=== PATIENT | male | born 1950 | race Caucasian/White ===

== ENCOUNTER 2017-12-25 10:52 | Day surgery (SDC) | payer MEDICARE ==
[2017-12-19 14:40] VITALS: BMI 31.9
[~2017-12-25 10:52] MED LIST: ALPRAZolam 0.25 MG TAB PO PRN; ALPRAZolam 0.5 MG TAB PO PRN; ASPIRIN 325 MG TAB PO STA; ATORVASTATIN 80 MG TAB PO STA; NITROGLYCERIN SL TABS 0.4 MG TAB SUBLINGUAL PRN; SODIUM CHLORIDE 0.9% 1,000 ML in EMPTY BAG 1 BAG IV ONE
[2017-12-25 11:31] VITALS: PULSE 64; RESP 20; TEMP 98.2
[2017-12-25 11:41] LABS: Glucose,Whole Blood 138 mg/dL (75-99)
[2017-12-25 11:59] LABS: Basophils # (A) 0.1 k/uL (0-0.2); Basophils % (A) 1 %; Eosinophils # (A) 0.3 k/uL (0-0.7); Eosinophils % (A) 5 %; HCT 43.8 % (39.0-53.0); HGB 15.2 gm/dL (13.0-17.5); Lymphocytes # (A) 2.2 k/uL (1.0-4.8); Lymphocytes % (A) 38 %; MCH 31.5 pg (25.0-35.0); MCHC 34.6 g/dL (31.0-37.0); MCV 90.9 fL (80.0-100.0); Mean Platelet Volume 7.4; Monocytes # (A) 0.5 k/uL (0-1.0); Monocytes % (A) 8 %; Neutrophils # (A) 2.6 k/uL (1.3-7.7); Neutrophils % (A) 45 %; Platelet Count 330 k/uL (150-450); RBC 4.82 m/uL (4.30-5.90); WBC 5.7 k/uL (3.8-10.6)
[2017-12-25 12:14] LABS: Anion Gap 12 mmol/L; Blood Urea Nitrogen 21 mg/dL (9-20); Calcium 9.4 mg/dL (8.4-10.2); Carbon Dioxide 24 mmol/L (22-30); Chloride 106 mmol/L (98-107); Glucose 141 mg/dL (74-99); Potassium 4.7 mmol/L (3.5-5.1); Sodium 142 mmol/L (137-145)
[2017-12-25] MEDS ORDERED: MIDAZOLAM 2 MG/2 ML VIAL IVP ONE (12:28)
[2017-12-25] MEDS ORDERED: IV FLUID CONTINUATION 900 ML IV ONE (12:33)
[2017-12-25] MEDS ORDERED: LIDOCAINE 2% INJ 20 MG/ML SQ ONE (12:33)
[2017-12-25] MEDS: VERAPAMIL SYRINGE (5 MG/10 ML) INTRAARTER ONE ×2 (12:34→12:44)
[2017-12-25] MEDS ORDERED: HEPARIN SODIUM 1,000 UN/ML (10ML VL) IV ONE (12:36)
[2017-12-25] MEDS ORDERED: IOPAMIDOL-370 125ML BTL INJ ONE (12:44)
[2017-12-25] MEDS ORDERED: RX INFO: IV CONTRAST WAS GIVEN 1 EACH MISC MISCELLANE PRN (12:50)
[2017-12-25] MEDS ORDERED: SODIUM CHLORIDE 0.9% 1,000 ML IV SCH (13:00)
--- NOTE | 2017-12-25 13:08 | CC ---
CARDIAC CATHETERIZATION REPORT DATE OF SERVICE: December 25, 2017 PERFORMING PHYSICIAN: Darius Dean MD, bacon skinner. PROCEDURE PERFORMED: 1. Selective right and left coronary angiogram. 2. Left heart catheterization. INDICATION: This is a pleasant 67-year-old gentleman with a past medical history significant for diabetes, hypertension, and dyslipidemia, who was experiencing exertional dyspnea and symptoms of chest discomfort. He underwent myocardial perfusion imaging stress test and that revealed transient ischemic dilatation of the left ventricle and I was concerned about severe underlying coronary artery disease. APPROACH: Right radial artery. COMPLICATION: None. LEVEL OF SEDATION: Moderate with sedation length of 15 minutes. PROCEDURE DESCRIPTION: After obtaining an informed consent, the patient was brought to the cardiac laborer/grade check. The right radial artery was cannulated using micropuncture technique, the micropuncture wire passed easily, then I placed a 6-Danish sheath in the right radial artery. After that, I did selective right and left coronary angiogram using JR4 and JL3.5 catheters. I did after that left heart catheterization using 5-Danish pigtail catheter. The procedure was completed without any complication. SELECTIVE CORONARY ANGIOGRAM: 1. RCA is a small to medium caliber vessel and it is a non dominant vessel. The RCA is angiographically normal. 2. The left main is angiographically normal. It bifurcates into left circumflex, ramus intermedius, and left anterior descending artery. 3. The left circumflex is a large caliber vessel and it is a dominant vessel. The left circumflex system is angiographically normal. In the midportion gives rise into a medium-sized OM branch which seems to be angiographically normal and distally bifurcates into PDA and PLV branches, both are angiographically normal. 4. The ramus intermedius is angiographically normal. 5. The LAD is a large caliber vessel. The proximal LAD appeared to be angiographically normal. It gives rise into 2 diagonal branches. It seems to be angiographically normal. The mid and distal LAD are angiographically normal. The LAD itself is a medium caliber vessel in the midportion. HEMODYNAMICS: The left ventricular end-diastolic pressure was 8 mmHg and no gradient was identified across the aortic valve. CONCLUSION: 1. Normal coronary angiogram. 2. Normal left ventricular end-diastolic pressure. POSTPROCEDURE MANAGEMENT: 1. Medical treatment. 2. Follow up with the patient. MMODL / IJN: [id number] /
--- NOTE | 2017-12-25 13:14 | LTR ---
December 25, [address] Camejo: Mr. Paresh Acuna underwent heart catheterization and that revealed normal coronaries. I want to thank you for allowing me to participate in his care and please do not hesitate to call if you have any question or concerns. MMARELIL / IJN: [id number] /
[2017-12-25 18:09] VITALS: BP 142/77
== END 2017-12-25 18:00 | disposition home or self-care (01) ==
LOC: CATHCVL 10:52
PROVIDERS: ATTEND Internal Medicine Interventional Cardiology
DX: I20.0 Unstable angina (principal); I10 Essential (primary) hypertension; R94.39 Abnormal result of other cardiovascular function study; E78.5 Hyperlipidemia, unspecified; E78.00 Pure hypercholesterolemia, unspecified; E11.9 Type 2 diabetes mellitus without complications; Z79.84 Long term (current) use of oral hypoglycemic drugs; Z82.49 Family history of ischemic heart disease and other diseases of the circulatory system; Z79.82 Long term (current) use of aspirin; Z79.899 Other long term (current) drug therapy
CPT/HCPCS: 93458; 80048; 85025; C1894; C1769; J2001; J2250; J1644; Q9967

== ENCOUNTER → 2019-05-06 | Outpatient (CLI) | payer MEDICARE ==
--- NOTE | 2019-05-06 09:52 | MR ---
EXAMINATION TYPE: MR lumbar spine wo con DATE OF EXAM: 05/06/2019 COMPARISON: NONE HISTORY: Lumbago with right sided sciatica, pain into right lower extremity TECHNIQUE: Multiplanar, multisequence imaging of the lumbar spine is performed without IV contrast. FINDINGS: Sagittal images of the lumbar spine show vertebral body heights and alignment to appear sat isfactory. Multilevel disc desiccation is present. There is moderate to advanced disc space narrowing L4-L5 level. There is Modic type II endplate changes L4-L5 level with moderate anterior spurring The conus medullaris is normal in position and signal ending inferior L1 level. Axial images show the T12-L1 and L1-L2 levels to appear within normal limits. Axial images at the L2-L3 level show mild broad disc bulge minimally effaces the anterior thecal sac, bilateral neural foramina are patent. Axial images at the L3-L4 level show [id number] broad disc bulge minimally effacing anterior th ecal sac and causing mild left greater than right anterior inferior neural foraminal narrowing. Mild facet degenerative changes and ligamentum flavum hypertrophy are present bilaterally. Axial images at the L4-L5 level show moderate facet degenerative changes bilaterally. There is modera te broad disc bulge with some posterior spurring. There is effacement of the anterior thecal sac. The re is moderate left and mild right-sided inferior neural foraminal narrowing. Axial images at the L5-S1 level show mild/moderate facet degenerative changes bilaterally. There is m oderate broad disc bulge. There is right lateral disc protrusion component causing severe right-sided neural foraminal narrowing and encroachment on right L5 nerve seen best sagittal image 13 and axial image 3. No suspicious incidental retroperitoneal findings. IMPRESSION: Multilevel degenerative changes in the lumbar spine as detailed above. Attention to L5-S1 level where eccentric disc herniation encroaches on exiting right L5 nerve likely accounting for pat alexandrnt's clinical symptoms.
== END | disposition home or self-care (01) ==
LOC: RADMRIMAIN 08:00
PROVIDERS: ATTEND Family Medicine
DX: M47.816 Spondylosis without myelopathy or radiculopathy, lumbar region (principal)
CPT/HCPCS: 72148

== ENCOUNTER → 2020-10-27 | Outpatient (CLI) | payer MEDICARE ==
--- NOTE | 2020-10-27 07:41 | MR ---
EXAMINATION TYPE: MR shoulder RT wo con DATE OF EXAM: 10/27/2020 COMPARISON: None HISTORY: R shoulder pain due to fall Technique: Multiplanar, multiecho imaging on a 3.0 Gini magnet is performed through the shoulder. Findings: Long head of the biceps tendon is within the bicipital groove. There is fluid surrounding t he long head of the biceps tendon. Small joint effusion. Glenoid labrum as visualized on this noncontrast study appears intact. Rotator cuff tendons are evaluated. There is complete tear of the supraspinatus tendon with separati on of at least 0.9 cm just distal to the acromion. No muscle atrophy is evident. No fatty infiltrati on is evident. Small amount fluid is adjacent to the infraspinatus tendon. Small subchondral cyst bryan r the insertion of the supraspinatus tendon. The acromioclavicular junction is mildly hypertrophied which can contribute to impingement syndrome. IMPRESSIONS: 1. Tear of the supraspinatus tendon with approximately 0.9 cm retraction with the proximal tip just u nder the distal acromion.
== END | disposition home or self-care (01) ==
LOC: RADMRIMAIN 06:09
PROVIDERS: ATTEND Family Medicine
DX: S46.011A Strain of muscle(s) and tendon(s) of the rotator cuff of right shoulder, initial encounter (principal)

== ENCOUNTER → 2022-01-16 | Outpatient (CLI) | payer MEDICARE ==
--- NOTE | 2022-01-16 09:57 | MR ---
EXAMINATION TYPE: MR angio neck wo/w con DATE OF EXAM: 01/16/2022 COMPARISON: None HISTORY: Lightheaded, shortness of breath. CONTRAST: Standard multiplanar, multisequence MRI departmental protocol images were obtained without contrast a nd with 9 mL intravenous Gadavist gadolinium contrast. FINDINGS: Images are limited by motion artifact. Left vertebral artery is dominant. Visualized portions of the vertebral basilar system are patent. The carotid bifurcations are widely patent with no significant stenosis. Assessment aortic arch and o rigins of the great vessels including the proximal and mid common carotid arteries are nondiagnostic due to extreme artifact. The visualized ICA appears to be patent bilaterally to the level of the cavernous sinus. IMPRESSION: Limited exam due to motion demonstrates no evidence of significant hemodynamic stenosis of the bifurc ations.
== END | disposition home or self-care (01) ==
LOC: RADMRIMAIN 08:46
PROVIDERS: ATTEND Family Medicine
DX: I65.23 Occlusion and stenosis of bilateral carotid arteries (principal); R06.02 Shortness of breath
CPT/HCPCS: 70549; A9585

== ENCOUNTER 2022-11-24 05:58 | Day surgery (SDC) | payer MEDICARE ==
[2022-11-24] MEDS ORDERED: SODIUM CHLORIDE 0.9% 1,000 ML in EMPTY BAG 1 BAG IV SCH (06:07)
[2022-11-24] MEDS ORDERED: ALPRAZolam 0.5 MG TAB PO PRN (06:07)
[2022-11-24] MEDS ORDERED: NITROGLYCERIN SL TABS 0.4 MG TAB SUBLINGUAL PRN (06:07)
[2022-11-24] MEDS ORDERED: HEPARIN SODIUM,PORCINE 10,000 UNIT in SODIUM CHLORIDE 0.9% 1,000 ML IRRIGATION PRN (06:07)
[2022-11-24] MEDS ORDERED: ATORVASTATIN 80 MG TAB PO STA (06:07)
[2022-11-24] MEDS ORDERED: ALPRAZolam 0.25 MG TAB PO PRN (06:07)
[2022-11-24] MEDS ORDERED: ASPIRIN 325 MG TAB PO STA (06:07)
[2022-11-24] MEDS ORDERED: HEPARIN SODIUM,PORCINE 2,500 UNIT in SODIUM CHLORIDE 0.9% 250 ML IRRIGATION PRN (06:07)
[2022-11-24 06:28] VITALS: RESP 18; TEMP 98.3
[2022-11-24 06:33] LABS: Glucose,Whole Blood 142 mg/dL (70-110)
[2022-11-24 06:34] LABS: Basophils # (A) 0.1 k/uL (0-0.2); Basophils % (A) 1 %; Eosinophils # (A) 0.1 k/uL (0-0.7); Eosinophils % (A) 2 %; HCT 49.3 % (39.0-53.0); HGB 16.8 gm/dL (13.0-17.5); Lymphocytes # (A) 2.2 k/uL (1.0-4.8); Lymphocytes % (A) 35 %; MCH 31.9 pg (25.0-35.0); Monocytes # (A) 0.4 k/uL (0-1.0); Monocytes % (A) 6 %; Neutrophils # (A) 3.3 k/uL (1.3-7.7); Neutrophils % (A) 52 %; Platelet Count 325 k/uL (150-450); RBC 5.25 m/uL (4.30-5.90); RDW 13.2 % (11.5-15.5); WBC 6.3 k/uL (3.8-10.6)
[2022-11-24 06:46] LABS: African American GFR (CKD) >90 (>60 ml/min/1.73 sqM); Anion Gap 7 mmol/L; Blood Urea Nitrogen 23 mg/dL (9-20); Calcium 9.5 mg/dL (8.4-10.2); Carbon Dioxide 24 mmol/L (22-30); Chloride 108 mmol/L (98-107); Glucose 149 mg/dL (74-99); Non-African American GFR(CKD) 89 (>60 ml/min/1.73 sqM); Potassium 4.5 mmol/L (3.5-5.1); Sodium 139 mmol/L (137-145)
[2022-11-24] MEDS ORDERED: HEPARIN SODIUM 1,000 UN/ML (10ML VL) ONE (08:37)
[2022-11-24] MEDS ORDERED: MIDAZOLAM 2 MG/2 ML VIAL IV ONE (08:54)
[2022-11-24] MEDS ORDERED: LIDOCAINE 1% INJ 10MG/ML (20 ML MDV) SQ ONE (08:56)
[2022-11-24] MEDS ORDERED: VERAPAMIL SYRINGE (5 MG/10 ML) INTRAARTER ONE (08:57)
[2022-11-24] MEDS ORDERED: HEPARIN SODIUM 1,000 UN/ML (10ML VL) IV ONE (09:00)
[2022-11-24] MEDS ORDERED: IOPAMIDOL-370 125ML BTL INJ ONE (09:07)
[2022-11-24] MEDS ORDERED: RX INFO: IV CONTRAST WAS GIVEN 1 EACH MISC MISCELLANE PRN (09:13)
[2022-11-24] MEDS ORDERED: SODIUM CHLORIDE 0.9% 1,000 ML IV SCH (09:15)
--- NOTE | 2022-11-24 09:17 | P.PCN ---
Date of Procedure: 11/24/22 Operative Findings: CARDIAC CATHETERIZATION PERFORMING PHYSICIAN: Darius Dean MD, RPVI PROCEDURE PERFORMED: 1. Selective right and left coronary angiogram 2. Left heart catheterization INDICATION: Chest discomfort in this 72-year-old gentleman who is known to have diabetes and hypertension and dyslipidemia and he underwent stress test showed ischemia. COMPLICATION: None APPROACH: Right radial artery LEVEL OF SEDATION: Moderate with a sedation length of 12 minutes PROCEDURE DESCRIPTION: After obtaining an informed consent, the patient was brought to cardiac brush clearing laborer. Local anesthesia was performed using lidocaine subcutaneously. The right radial artery was cannulated using Seldinger technique, the guidewire passed easily, following that we advanced a 5-Burmese sheath dilator assembly, the wire and dilator were removed and sheath was flushed. Following that, 2 mg of verapamil along with 5000 unit heparin were given. Selective right and left coronary angiogram using a 6-Burmese JR4 and JL 3.5 catheters. Following that we did left heart catheterization using 6-Burmese pigtail catheter. The procedure was completed there was no complication. SELECTIVE CORONARY ANGIOGRAM: The right coronary artery: Moderate caliber vessel nondominant vessel appeared to be angiographically normal Left main: Is angiographically normal. Bifurcates into LCx and LAD The left circumflex: Large caliber vessel and a dominant vessel. The LCx system is angiographically normal. Gives rises into the first and second OM's and they appeared to be normal. Distally bifurcates into PDA and PLV branches and both appeared to be angiographically normal The left anterior descending artery: Is angiographically normal. Gives rises into the first diagonal branch which seems to be normal and second diagonal branch which has a lesion appeared to be in the range of 60% and the artery is 2 mm vessel. HEMODYNAMICS: The LVEDP was 11 mmHg was no gradient was identified across aortic valve CONCLUSION: 1. Intermediate disease involving the second diagonal branch of the LAD and the vessel is 2 mm in diameter 2. Normal left-sided filling pressure POSTPROCEDURE MANAGEMENT: Medical treatment at this point. Consider FFR of the diagonal if the patient remains symptomatic
[2022-11-24] MEDS ORDERED: SODIUM CHLORIDE 0.9% 500 ML 500 ML IV ONE (11:00)
[2022-11-24 11:43] VITALS: PULSE 70
[2022-11-24 12:58] VITALS: BP 135/84
== END 2022-11-24 13:35 | disposition home or self-care (01) ==
LOC: CATHCVL 05:58
PROVIDERS: ATTEND Internal Medicine Interventional Cardiology
DX: I25.10 Atherosclerotic heart disease of native coronary artery without angina pectoris (principal); E11.9 Type 2 diabetes mellitus without complications; E78.5 Hyperlipidemia, unspecified; I10 Essential (primary) hypertension
CPT/HCPCS: 93458; 80048; 85025; C1769; C1894; J2250; J2001; J1644; Q9967

== ENCOUNTER → 2023-10-26 | Outpatient (CLI) | payer MEDICARE ==
--- NOTE | 2023-10-26 11:04 | XR ---
EXAMINATION TYPE: XR Hip Bilateral Complete DATE OF EXAM: 10/26/2023 COMPARISON: NONE HISTORY: Pain TECHNIQUE: 2 views submitted FINDINGS: There is no evidence of erosive change or acute fracture. A mild concentric narrowing of the hip join t bilaterally. Mild generalized demineralization. Vascular calcifications. Mild hypertrophic SI joint arthropathy bilaterally. IMPRESSION: 1. Mild bilateral hip arthropathy. Femoral acetabular impingement in the differential diagnosis.
== END | disposition home or self-care (01) ==
LOC: RADXRMAIN 10:28
PROVIDERS: ATTEND Internal Medicine
DX: M12.852 Other specific arthropathies, not elsewhere classified, left hip (principal); M12.851 Other specific arthropathies, not elsewhere classified, right hip
CPT/HCPCS: 73521

== ENCOUNTER 2024-05-28 07:14 | Day surgery (SDC) | payer MEDICARE ==
[~2024-05-28 07:14] MED LIST changes: +ASPIRIN 325 MG TAB PO ONE; -ASPIRIN 325 MG TAB PO STA; -ATORVASTATIN 80 MG TAB PO STA; +HEPARIN SODIUM,PORCINE (1 ML) 2,500 UNIT in SODIUM CHLORIDE 0.9% 250 ML IRRIGATION PRN; +HEPARIN SODIUM,PORCINE 10,000 UNIT in SODIUM CHLORIDE 0.9% 1,000 ML IRRIGATION PRN; -SODIUM CHLORIDE 0.9% 1,000 ML in EMPTY BAG 1 BAG IV ONE
[2024-05-28 07:39] LABS: Glucose,Whole Blood 127 mg/dL (70-110)
[2024-05-28 07:40] VITALS: TEMP 96.7
[2024-05-28] MEDS: SODIUM CHLORIDE 0.9% 1,000 ML in EMPTY BAG 1 BAG IV SCH (07:41)
[2024-05-28] MEDS: IV FLUID CONTINUATION 1,000 ML IV ONE (07:41)
[2024-05-28] MEDS: MIDAZOLAM 2 MG/2 ML VIAL IVP ONE (09:31)
[2024-05-28] MEDS: LIDOCAINE 1% INJ 10MG/ML (20 ML MDV) SQ ONE (09:32)
[2024-05-28] MEDS: VERAPAMIL SYRINGE (5 MG/10 ML) INTRAARTER ONE (09:33)
[2024-05-28] MEDS: HEPARIN SODIUM 1,000 UN/ML (10ML VL) IVP ONE (09:35)
[2024-05-28] MEDS: IOPAMIDOL-370 100ML BTL INJ ONE (09:43)
[2024-05-28] MEDS ORDERED: RX INFO: IV CONTRAST WAS GIVEN 1 EACH MISC MISCELLANE PRN (09:46)
--- NOTE | 2024-05-28 09:50 | P.PCN ---
Date of Procedure: 05/28/24 Operative Findings: CARDIAC CATHETERIZATION PERFORMING PHYSICIAN: Darius Dean MD, RPVI PROCEDURE PERFORMED: 1. Selective right and left coronary angiogram 2. Ultrasound-guided access of the right radial artery INDICATION: Symptomatic 71-year-old gentleman with abnormal myocardial perfusion imaging s tress test COMPLICATION: None APPROACH: Right radial artery LEVEL OF SEDATION: Moderate with a sedation length of 12 minutes PROCEDURE DESCRIPTION: After obtaining an informed consent, the patient was brought to cardiac labor law professor. Local anesthesia was performed using lidocaine subcutaneously. The right radial artery was cannulated using Seldinger technique, the guidewire passed easily, following that we advanced a 5-Yoruba sheath dilator assembly, the wire and dilator were removed and sheath was flushed. Following that, 2 mg of verapamil along with 5000 unit heparin were given. Selective right and left coronary angiogram using a 6-Yoruba JR4 and JL 3.5 catheters. The procedure was completed there was no complication. SELECTIVE CORONARY ANGIOGRAM: The right coronary artery: Medium caliber vessel nondominant vessel appears to be angiographically normal Left main: Mildly calcified but appears to be angiographically normal The left circumflex: Large caliber vessel and a dominant vessel appears to be angiographically normal with no high-grade stenosis was identified The left anterior descending artery: The mid LAD has lesion appears to be in the range of 40 to 50%. No high-grade stenosis was identified as well CONCLUSION: 1. Intermediate disease involving the mid LAD POSTPROCEDURE MANAGEMENT: Medical treatment
[2024-05-28] MEDS ORDERED: SODIUM CHLORIDE 0.9% 1,000 ML IV SCH (10:00)
[2024-05-28 17:53] VITALS: RESP 16
[2024-05-28 18:00] VITALS: BP 131/67; PULSE 79
== END 2024-05-28 13:59 | disposition home or self-care (01) ==
LOC: CATHCVL 07:14
PROVIDERS: ATTEND Internal Medicine Interventional Cardiology
DX: R07.9 Chest pain, unspecified
CPT/HCPCS: 93454

== ENCOUNTER → 2025-02-18 | Outpatient (CLI) | payer MEDICARE ==
[2025-02-18 10:39] LABS: BUN/Creat Ratio 22.33 Ratio (12.00-20.00); Blood Urea Nitrogen 20.1 mg/dL (9.0-27.0); Calcium 9.5 mg/dL (8.7-10.3); Chloride 106 mmol/L (96-109); Glucose 145 mg/dL (70-110); HCT 45.7 % (39.6-50.0); HGB 15.1 g/dL (13.0-17.0); MCH 31.5 pg (27.0-32.0); MCV 95.2 FL (80.0-97.0); NRBC Per 100 WBC 0 X 10*3/uL (0.00-0.01); Platelet Count 356 X 10*3/uL (140-440); RDW 13.3 % (11.5-14.5); Sodium 144 mmol/L (135-145); WBC 5.48 X 10*3/uL (4.50-10.00)
[2025-02-18 10:40] LABS: Basophils # (A) 0.05 X 10*3/uL (0.00-0.10); Basophils % (A) 0.9 %; Eosinophils # (A) 0.14 X 10*3/uL (0.04-0.35); Eosinophils % (A) 2.6 %; Lymphocytes # (A) 1.78 X 10*3/uL (0.90-5.00); Lymphocytes % (A) 32.5 %; Monocytes # (A) 0.62 X 10*3/uL (0.20-1.00); Monocytes % (A) 11.3 %; Neutrophils # (A) 2.88 X 10*3/uL (1.80-7.70); Neutrophils % (A) 52.5 %
[2025-02-18 22:29] LABS: Appearance,Urine Clear (Clear); Bilirubin,Urine Negative (Negative); Blood,Urine Negative (Negative); Color,Urine Yellow (Yellow); Ketones,Urine 40 (Negative); Nitrite,Urine Negative (Negative); Specific Gravity,Urine >1.035 (1.001-1.030); Urobilinogen,Urine 0.2
== END | disposition home or self-care (01) ==
LOC: LABPAT 07:57
PROVIDERS: ATTEND Urology
DX: Z01.812 Encounter for preprocedural laboratory examination (principal); C61 Malignant neoplasm of prostate
CPT/HCPCS: 36415; 80048; 81003; 85025; 86850; 86900; 86901; 87086

== ENCOUNTER 2025-02-27 10:24 | Day surgery (SDC) | payer MEDICARE ==
--- NOTE | 2025-02-24 09:31 | P.HPIHPCON ---
History of Present Illness H&P Date: 02/24/25 Chief Complaint: Prostate cancer This is a 74-year-old male with history of Lodi 7(3+4) prostate cancer. He was initially diagnosed with Lodi 6 prostate cancer back in October 2022, on repeat biopsy had evidence of disease progression. At this point I discussed with him I do recommend proceeding with definitive treatment. Option of robotic radical prostatectomy versus radiation therapy was discussed with him in detail. Risk and benefit of each approach were discussed. He agreed to proceed with a robotic radical prostatectomy. He is aware of the risk which include but not limited to bleeding, infection, urinary incontinence, erectile dysfunction. Risk of injury to nearby organs was discussed. Discussed also the risk of cancer recurrence and the potential need for additional treatments, and the need for postoperative surveillance. He understood all risk and agreed to proceed Consent for Procedure: I have explained the operation/procedure to the patient, including the risks, benefits, side effects, alternative therapies (including not receiving the proposed treatment or service), the likelihood of the patient achieving his/her goals, and potential recuperation problems for the procedure/sedation/analgesia, as well as any blood products, if indicated. I also explained to the patient the risks, benefits and side effects of the alternatives, as well as the risks related to not receiving the proposed procedure, care, treatment, or services. Past Medical History Past Medical History: Cancer, Diabetes Mellitus, Hyperlipidemia, Hypertension, Prostate Disorder Additional Past Medical History / Comment(s): prostate cancer dx. 2 yrs. ago, Type II DM History of Any Multi-Drug Resistant Organisms: None Reported Past Surgical History: Heart Catheterization, Hernia Repair, Orthopedic Surgery, Tonsillectomy Additional Past Surgical History / Comment(s): Rt. inguinal hernia, Rt. wrist surgery, Rt. rotator cuff repair Past Anesthesia/Blood Transfusion Reactions: No Reported Reaction Smoking Status: Never smoker - Past Family History Father Family Medical History: Cancer Additional Family Medical History / Comment(s): lung Mother Family Medical History: Congestive Heart Failure (CHF) Medications and Allergies Home Medications Medication Instructions Recorded Confirmed Type Benazepril [Lotensin] 10 mg PO DAILY 12/19/17 02/24/25 History Cholecalciferol [Vitamin D3 (25 3,000 unit PO DAILY 12/19/17 02/24/25 History Mcg = 1000 Iu)] Glimepiride [Amaryl] 1 mg PO HS 12/19/17 02/24/25 History amLODIPine [Norvasc] 10 mg PO QAM 12/19/17 02/24/25 History Dapagliflozin Propanediol [Farxiga] 10 mg PO DAILY 11/22/22 02/24/25 History Ibuprofen/Pseudoephedrine HCl 1 each PO DIRECTED PRN 11/22/22 02/24/25 History [Advil Cold & Sinus Caplet] Montelukast [Singulair] 10 mg PO HS 11/22/22 02/24/25 History Tamsulosin [Flomax] 0.4 mg PO DAILY 11/22/22 02/24/25 History Semaglutide [Ozempic] 1 mg SQ MO 05/23/24 02/24/25 History Acetaminophen Tab [Tylenol Tab] 500 mg PO Q6H PRN 02/24/25 02/24/25 History Ezetimibe [Zetia] 10 mg PO HS 02/24/25 02/24/25 History Rosuvastatin [Crestor] 20 mg PO DAILY 02/24/25 02/24/25 History metFORMIN HCL ER [Glucophage XR] 500 mg PO HS 02/24/25 02/24/25 History Allergies Allergy/AdvReac Type Severity Reaction Status Date / Time No Known Allergies Allergy Verified 02/24/25 08:38 Surgical - Exam - General no distress, no pain - Eyes normal ocular movement, no pale - ENT normal nares, normal mucosa - Respiratory normal expansion, normal respiratory effort - Abdomen Abdomen: soft, non tender, no distended - Psychiatric oriented to time, oriented to person, oriented to place Assessment and Plan Assessment: OR for robotic radical prostatectomy with bilateral pelvic lymph node dissection
[2025-02-27] MEDS: LACTATED RINGERS 1,000 ML IV SCH (10:50)
[2025-02-27] MEDS: IV FLUID CONTINUATION 1,000 ML IV ONE ×2 (10:50→11:00)
[2025-02-27 11:07] LABS: Glucose,Whole Blood 140 mg/dL (70-110)
[2025-02-27] MEDS: DEXAMETHASONE SOD PHOSPHATE 4 MG/ML 1 ML VIAL IV ONE (11:08)
[2025-02-27] MEDS: ONDANSETRON 4 MG/2 ML VIAL IVP ONE (11:08)
[2025-02-27] MEDS: MIDAZOLAM 2 MG/2 ML VIAL IV ONE (11:14)
[2025-02-27] MEDS: HEPARIN SODIUM,PORCINE 5,000 UNIT/ML 1 ML VIAL SQ PRN (11:20)
[2025-02-27] MEDS ORDERED: MIDAZOLAM 2 MG/2 ML VIAL ONE (12:29)
[2025-02-27] MEDS ORDERED: ONDANSETRON 4 MG/2 ML VIAL IVP PRN (12:29)
[2025-02-27] MEDS ORDERED: ROPIVACAINE 5 MG/ML 30 ML VIAL ONE (12:29)
[2025-02-27] MEDS ORDERED: GLYCOPYRROLATE 0.2 MG/ML 2 ML VIAL ONE (12:29)
[2025-02-27] MEDS ORDERED: fentaNYL (PF) 50 MCG/ML 2 ML AMP ONE (12:29)
[2025-02-27] MEDS ORDERED: ePHEDrine 50 MG/ML 1 ML VIAL ONE (12:29)
[2025-02-27] MEDS ORDERED: LIDOCAINE 1% INJ 10MG/ML (20 ML MDV) ONE (12:29)
[2025-02-27] MEDS ORDERED: HYDROmorphone (PF) 1 MG/ML ONE (12:29)
[2025-02-27] MEDS ORDERED: HYDROmorphone 1 MG/ML 1 ML SYRINGE IVP PRN (12:29)
[2025-02-27] MEDS ORDERED: DEXAMETHASONE SOD PHOSPHATE 4 MG/ML 1 ML VIAL ONE (12:29)
[2025-02-27] MEDS ORDERED: PROPOFOL 10 MG/ML 20 ML VIAL IV ONE (12:29)
[2025-02-27] MEDS ORDERED: ESMOLOL 100 MG/10 ML VIAL ONE (12:29)
[2025-02-27] MEDS ORDERED: SODIUM CHLORIDE 0.9% (PF) 10 ML VIAL ONE (12:29)
[2025-02-27] MEDS ORDERED: NEOSTIGMINE 1 MG/ML 10 ML VIAL ONE (12:29)
[2025-02-27] MEDS ORDERED: SUCCINYLCHOLINE CHLORIDE 200 MG/10 ML VIAL IV ONE (12:29)
[2025-02-27] MEDS ORDERED: ROCURONIUM 10 MG/ML (5 ML VIAL) IV ONE (12:29)
[2025-02-27] MEDS ORDERED: HYDROcodone/APAP 5-325MG 1 EACH TAB PO PRN (12:32)
[2025-02-27] MEDS: BUPIVACAINE (PF) 0.25% 30 ML VIAL SQ ONE ×2 (13:20→16:11)
--- NOTE | 2025-02-27 13:46 | P.ANPRN ---
Procedure Note - Anesthesia - Nerve Block Performed Bilateral Erector Spinae Single Time Out Performed: Yes Date of Procedure: 02/27/25 Procedure Start Time: 11:14 Procedure Stop Time: 11:18 Location of Patient: PreOp Indication: Acute Post-Operative Pain, Requested by Surgeon Sedation Type: Sedate with meaningful contact maintained Preparation: Sterile Prep Position: Prone Needle Types: Pajunk Needle Gauge: 21 Ultrasound used to visualize needle placement: Yes Ultrasound used to observe medication spread: Yes Blood Aspirated: No Pain Paresthesia on Injection Noted: No Resistance on Injection: Normal Image Stored and Saved: Yes Events: Uneventful and Well Tolerated (Ropivacaine 0.5% 15 cc plus normal saline 10 cc plus dexamethasone 4 mg given bilaterally at L1)
[2025-02-27] MEDS: LACTATED RINGERS 1,000 ML IV ONE (15:11)
--- NOTE | 2025-02-27 16:12 | P.OP ---
Date of Procedure: 02/27/25 Preoperative Diagnosis: Prostate cancer Postoperative Diagnosis: Same Procedure(s) Performed: Robotic radical prostatectomy with bilateral pelvic lymph node dissection Implants: None Anesthesia: BERNADETTEA Surgeon: Dave Bruce Estimated Blood Loss (ml): 50 Pathology: other (Prostate, bilateral seminal vesicle, bilateral pelvic nodes) Condition: stable Disposition: PACU Indications for Procedure: This is a 74-year-old male with history of Rashmi 7(3+4) prostate cancer. He was initially diagnosed with Rashmi 6 prostate cancer back in October 2022, on repeat biopsy had evidence of disease progression. At this point I discussed with him I do recommend proceeding with definitive treatment. Option of robotic radical prostatectomy versus radiation therapy was discussed with him in detail. Risk and benefit of each approach were discussed. He agreed to proceed with a robotic radical prostatectomy. He is aware of the risk which include but not limited to bleeding, infection, urinary incontinence, erectile dysfunction. Risk of injury to nearby organs was discussed. Discussed also the risk of cancer recurrence and the potential need for additional treatments, and the need for postoperative surveillance. He understood all risk and agreed to proceed Description of Procedure: After preoperative antibiotics were started, the patient was taken to the operating room. Anesthesia was induced and the patient was placed in a supine position, with adequate padding of the pressure points, shoulders, back, legs and arms. He was then prepped and draped in the standard fashion. A critical pause was performed using two patient identifiers. A 16F harrison catheter was placed to gravity drainage. A pneumo-peritoneum was created with placement of a Veress needle to 20 mm Hg without complication, and a 8 Fr trocar was placed above the umbillicus. Under direct vision a 8mm robotic ports was placed lateral to each rectus slightly below the camera port. The left iliac fossa 8mm port was placed. The right legal support assistant right iliac fossa 12mm port and right paramedian 5mm portwere placed. After the patient was placed in the trendelenberg position, the robot was then docked to the 8mm robotic ports and then each robotic arm and tower was checked in relation to the patient's legs and hands to avoid inadvertent compression. The peritoneal cavity was inspected. An inverted U-shaped incision began laterally to the left medial umbilical ligament and extended high across the midline to the right umbilical ligament. The limbs of the "U" extended to the level of the vasa on both sides. We next developed the preperitoneal space and the space of Retzius. Cautery was used to dissected the bladder away from the prostate. After the anterior bladder neck was incised and the bladder entered the the posterior bladder neck was exposed and the ureteral orifces identified. The posterior bladder neck was then incised and dissected away from the prostate. The vas and the seminal vesicles were now exposed and dissected to their insertions into the prostate and were not spared. The posterior layer of the Denonvillier's fascia was incised to enter nicole the plane between prostate and perirectal fat. Each lateral pedicle was controlled with vessel sealer. Complete nerve preservation was performed on the right, partial nerve preservation was performed on the left. The puboprostatic ligament was incised where it inserted into the apex of the prostate and a plane between urethra and dorsal venous complex developed to expose the anterior urethral surface. The anterior wall of the urethra was transected with the cut setting a few millimeters distal to the apex of the prostate. The dorsal vein was ligated using 3-0 V lock bilateral obturator and external iliac lymph node packets were carefully dissected after careful visualization of the hypogastric artery and obturator nerve. There was careful attention paid to hemostasis with judicious use of cautery. The urethrovesical anastomosis was performed . the posterior denovillers was reapproximated using 3-0 V lock. A 6 and 6 inch 3-0 V-Lock suture was used to anastomose the urethra and bladder, starting at the 6:00 posterior position. Mucosa was secured in every stitch, to ensure a mucosa to mucosa anastomosis. The stitch was regularly cinched and the anastomosis tightened. Care was taken to not violate the ureteral orifices. The Harrison catheter was advanced, the bladder filled, and the anastomosis was tested, as described above. Anastomsis was watertight at 150 mL The periumbilical fascia was closed with 1-0-PDS suture in figure of eight fashion. All ports were closed with a subcuticular 4-0 monocryl and Dermabond. Sponge, instrument, and needle counts were correct at the end of the case x2. All specimens including prostate and lymph nodes were sent to pathology for diagnosis and will be available in a week. The patient tolerated the surgery well and without complication. He awoke without difficulty and was taken to the recovery room in stable condition
[2025-02-27] MEDS: HYDROmorphone 0.5 MG/0.5 ML SYRINGE IVP PRN (17:10)
[2025-02-27] MEDS: KETOROLAC 15 MG/ML 1 ML VIAL IVP SCH (17:54)
[2025-02-27] MEDS: SODIUM CHLORIDE 0.9% 1,000 ML IV SCH (19:06)
[2025-02-27] MEDS: HEPARIN SODIUM,PORCINE 5,000 UNIT/ML 1 ML VIAL SQ SCH (19:07)
[2025-02-27] MEDS: metFORMIN 500 MG TAB PO SCH (19:07)
[2025-02-27 21:06] LABS: Glucose,Whole Blood 219 mg/dL (70-110)
[2025-02-27] MEDS: MONTELUKAST 10 MG TAB PO SCH (21:13)
[2025-02-27] MEDS: EZETIMIBE 10 MG TAB PO SCH (21:13)
[2025-02-27] MEDS: GLIMEPIRIDE 1 MG TAB PO SCH (21:13)
[2025-02-28 04:27] VITALS: RESP 20
[2025-02-28 08:01] VITALS: BP 120/67; PULSE 74; TEMP 98.6
[2025-02-28] MEDS: DAPAGLIFLOZIN PROPANEDIOL 10 MG TABLET PO SCH (08:30)
[2025-02-28] MEDS: ATORVASTATIN 40 MG TAB PO SCH (08:30)
[2025-02-28] MEDS: amLODIPine 10 MG TAB PO SCH (08:30)
[2025-02-28] MEDS: ACETAMINOPHEN TAB 500 MG TAB PO PRN (08:31)
[2025-02-28 11:30] LABS: Glucose,Whole Blood 243 mg/dL (70-110)
--- NOTE | 2025-02-28 13:01 | P.DS ---
Providers Attending physician: Dave Bruce MD Primary care physician: Alverto Norris [facility] Course: 74 yo male underwent a ralp by Dr Bruce yesterday without incident. He had an uneventful night. His VSS. His uo is good and clear He is having minimal discomfort. He tolerated oral intake He will be d/cd home and fu with Dr bruce in the office. Patient Condition at Discharge: Good Plan - Discharge Summary Discharge Rx Participant: No New Discharge Prescriptions: No Action amLODIPine [Norvasc] 10 mg PO QAM Glimepiride [Amaryl] 1 mg PO HS Cholecalciferol [Vitamin D3 (25 Mcg = 1000 Iu)] 3,000 unit PO DAILY Montelukast [Singulair] 10 mg PO HS Semaglutide [Ozempic] 1 mg SQ MO Acetaminophen Tab [Tylenol Tab] 500 mg PO Q6H PRN PRN Reason: Pain metFORMIN HCL ER [Glucophage XR] 500 mg PO HS Rosuvastatin [Crestor] 20 mg PO DAILY Ezetimibe [Zetia] 10 mg PO HS Ibuprofen/Pseudoephedrine HCl [Advil Cold & Sinus Caplet] 1 each PO DIRECTED PRN PRN Reason: Sinus Symptoms Dapagliflozin Propanediol [Farxiga] 10 mg PO DAILY Tamsulosin [Flomax] 0.4 mg PO DAILY Discharge Medication List Cholecalciferol [Vitamin D3 (25 Mcg = 1000 Iu)] 3,000 unit PO DAILY 12/19/17 [History] Glimepiride [Amaryl] 1 mg PO HS 12/19/17 [History] amLODIPine [Norvasc] 10 mg PO QAM 12/19/17 [History] Dapagliflozin Propanediol [Farxiga] 10 mg PO DAILY 11/22/22 [History] Ibuprofen/Pseudoephedrine HCl [Advil Cold & Sinus Caplet] 1 each PO DIRECTED PRN 11/22/22 [History] Montelukast [Singulair] 10 mg PO HS 11/22/22 [History] Tamsulosin [Flomax] 0.4 mg PO DAILY 11/22/22 [History] Semaglutide [Ozempic] 1 mg SQ MO 05/23/24 [History] Acetaminophen Tab [Tylenol Tab] 500 mg PO Q6H PRN 02/24/25 [History] Ezetimibe [Zetia] 10 mg PO HS 02/24/25 [History] Rosuvastatin [Crestor] 20 mg PO DAILY 02/24/25 [History] metFORMIN HCL ER [Glucophage XR] 500 mg PO HS 02/24/25 [History]
== END 2025-02-28 14:43 | disposition home or self-care (01) ==
LOC: OR 10:24 → 4SSUR 16:41 → OR 02-28 14:43
PROVIDERS: ATTEND Urology
DX: C61 Malignant neoplasm of prostate (principal); G89.18 Other acute postprocedural pain; E11.9 Type 2 diabetes mellitus without complications; E78.5 Hyperlipidemia, unspecified; I10 Essential (primary) hypertension; Z79.84 Long term (current) use of oral hypoglycemic drugs; Z79.899 Other long term (current) drug therapy; Z98.890 Other specified postprocedural states
CPT/HCPCS: 38571; 55866; S2900; 64468